=== PATIENT | female | born 1965 | race Two or more races ===

== ENCOUNTER 2016-09-15 12:44 | Emergency (ER) | payer OTHER ==
[2016-09-15 13:20] VITALS: TEMP 98.1; BMI 18.9
--- NOTE | 2016-09-15 14:17 | PDOC ---
[id number] is a 51 year old female who presents to the ED complaining of bilateral lower back pain. The patient and her family member are poor historians. The family member states she has a hx of UTI and kidney stones but cannot provide any specific details secondary to language barrier. The patient denies fever, chills Allergies:NKDA Social: Denies toxic habits <Kirsty Daley - Last Filed: 09/15/16 15:16> <Santiago Arzate - Last Filed: 09/17/16 12:21> - General Chief Complaint: Pain, Acute Stated Complaint: FLANK PAIN, Past History <Kirsty Daley - Last Filed: 09/15/16 15:16> - Past Medical History Other medical history: DENIES. - Psycho/Social/Smoking Cessation Hx Anxiety: No Suicidal Ideation: No Smoking History: Never smoked Substance Use Type: None <Santiago Arzate - Last Filed: 09/17/16 12:21> - Past Medical History Allergies/Adverse Reactions: Allergies Allergy/AdvReac Type Severity Reaction Status Date / Time No Known Allergies Allergy Verified 09/15/16 13:15 Home Medications: Ambulatory Orders NK [No Known Home Medication] 09/15/16 Review of Systems - Review of Systems Comments:: 09/15/16 14:23 CONSTITUTIONAL: Absent: fever, chills MUSCULOSKELETAL: +Bilateral lower back pain. Absent: joint swelling <Kirsty Daley - Last Filed: 09/15/16 15:16> *Physical Exam - Vital Signs Last Vital Signs Temp Pulse Resp BP Pulse Ox 98.1 F 102 H 19 105/58 99 09/15/16 13:15 09/15/16 13:15 09/15/16 13:15 09/15/16 13:15 09/15/16 13:15 - Physical Exam Comments: 09/15/16 14:24 GENERAL: Well developed, well nourished. Awake and alert. In no acute distress. HEENT: Normocephalic, atraumatic. PERRLA, EOMI. No conjunctival pallor. Sclera are non- icteric. Moist mucous membranes. Oropharynx is clear. NECK: Supple. Full ROM. No JVD. Carotid pulses 2+ and symmetric, without bruits. No thyromegaly. No lymphadenopathy. CARDIOVASCULAR: Regular rate and rhythm. No murmurs, rubs, or gallops. Distal pulses are 2+ and symmetric. PULMONARY: No evidence of respiratory distress. Lungs clear to auscultation bilaterally. No wheezing, rales or rhonchi. ABDOMINAL: +Mild suprapubic tenderness. Soft. Non-distended. No rebound or guarding. No organomegaly. Normoactive bowel sounds. MUSCULOSKELETAL +Left CVA tenderness. Normal range of motion at all joints. No bony deformities or tenderness. EXTREMITIES: No cyanosis. No clubbing. No edema. No calf tenderness. SKIN: Warm and dry. Normal capillary refill. No rashes. No jaundice. NEUROLOGICAL: Alert, awake, appropriate. Cranial nerves 2-12 intact. No motor deficits in the in face, upper extremities and lower extremities. PSYCHIATRIC: Cooperative. Good eye contact. Appropriate mood and affect. <Kirsty Daley - Last Filed: 09/15/16 15:16> - Vital Signs Last Vital Signs Temp Pulse Resp BP Pulse Ox 98.1 F 102 H 19 105/58 99 09/15/16 13:15 09/15/16 13:15 09/15/16 13:15 09/15/16 13:15 09/15/16 13:15 <Santiago Arzate - Last Filed: 09/17/16 12:21> ED Treatment Course - LABORATORY CBC & Chemistry Diagram: 09/15/16 14:34 09/15/16 14:34 <Kirsty Daley - Last Filed: 09/15/16 15:16> - LABORATORY CBC & Chemistry Diagram: 09/15/16 14:34 09/15/16 14:34 <Santiago Arzate - Last Filed: 09/17/16 12:21> *DC/Admit/Observation/Transfer - Attestations Scribe Attestion: 09/15/16 14:23 Documentation prepared by Kirsty Daley, acting as medical doctor md/medical director for Santiago Arzate MD, /DO. <Kirsty Daley - Last Filed: 09/15/16 15:16> - Discharge Dispostion Admit: No <Santiago Arzate - Last Filed: 09/17/16 12:21> Diagnosis at time of Disposition: Cyst of ovary, right Abdominal pain Qualifiers: Abdominal location: unspecified location Qualified Code(s): R10.9 - Unspecified abdominal pain - Discharge Dispostion Disposition: HOME Condition at time of disposition: Stable - Referrals Referrals: pmd, as needed [Other] STAFF,NOT ON [Primary Care Provider] - - Patient Instructions Printed Discharge Instructions: DI for Ovarian Cyst, DI for Abdominal Pain- Adult Print Language: [place]
[2016-09-15] MEDS ORDERED: KETOROLAC TROMETHAMINE 30 MG/1 ML VIAL IVPUSH ONE (14:18)
[2016-09-15] MEDS ORDERED: KETOROLAC TROMETHAMINE 30 MG/1 ML VIAL ONE (14:24)
[2016-09-15 14:47] LABS: BASOPHIL 0.8 % (0-2.0); EOSINOPHIL 2.2 % (0-4.5); MCH 31.2 pg (25.7-33.7); MCHC 33.3 g/dl (32.0-36.0); MEAN CELL VOLUME 93.6 fl (80-96); MEAN PLT VOLUME 9.7 fl (7.5-11.1); NEUTROPHILS 39.3 % (42.8-82.8); PLATELET COUNT 231 K/MM3 (134-434); RDW 12.3 % (11.6-15.6); WHITE BLOOD COUNT 4.2 K/mm3 (4.0-10.0)
[2016-09-15 14:49] LABS: URINE APPEARANCE CLEAR; URINE BILIRUBIN NEGATIVE (NEGATIVE); URINE BLOOD NEGATIVE (NEGATIVE); URINE COLOR YELLOW; URINE GLUCOSE (UA) NEGATIVE (NEGATIVE); URINE KETONE NEGATIVE (NEGATIVE); URINE LEUK ESTERASE NEGATIVE (NEGATIVE); URINE NITRITE NEGATIVE (NEGATIVE); URINE PROTEIN NEGATIVE (NEGATIVE); URINE UROBILINOGEN NEGATIVE E.U./dl (0.2-1.0)
[2016-09-15 15:11] LABS: ALBUMIN 3.7 g/dl (3.4-5.0); ANION GAP 8 (8-16); CALCIUM 9.2 mg/dL (8.5-10.1); CO2 28 mmol/L (21-32); CREATININE 0.5 mg/dL (0.55-1.02); GLUCOSE,RANDOM 96 mg/dL (74-106); SGOT/AST 12 U/L (15-37); SGPT/ALT 19 U/L (12-78)
[2016-09-15 15:13] LABS: ALK PHOS 61 U/L (45-117); BILIRUBIN,TOTAL 0.3 mg/dL (0.2-1.0); TOT PROT 7.5 g/dl (6.4-8.2)
[2016-09-15 18:32] VITALS: BP 110/56; PULSE 91
--- NOTE | 2016-09-15 21:58 | PDOC ---
*Physical Exam - Vital Signs Last Vital Signs Temp Pulse Resp BP Pulse Ox 98.1 F 91 H 18 110/56 99 09/15/16 13:15 09/15/16 18:31 09/15/16 18:31 09/15/16 18:31 09/15/16 18:31 - Physical Exam Comments: 09/15/16 21:56 patient is a 51-year-old female endorsed to me by Dr. Arzate. Patient presented with nonspecific abdominal pain. CBC/CMP/UA within normal limit. CT of abdomen and pelvis reveals a right involuting ovarian cyst but no evidence of acute intra-abdominal pathology. At this time, patient is well-appearing, with minimal discomfort, tolerates by mouth. Will discharge with outpatient follow-up as scheduled. ED Treatment Course - LABORATORY CBC & Chemistry Diagram: 09/15/16 14:34 09/15/16 14:34 - ADDITIONAL ORDERS Additional order review: Laboratory Results 09/15/16 09/15/16 14:34 14:34 Sodium 140 Potassium 4.0 Chloride 104 Carbon Dioxide 28 Anion Gap 8 BUN 11 Creatinine 0.5 L Creat Clearance w eGFR > 60 Random Glucose 96 Calcium 9.2 Total Bilirubin 0.3 AST 12 L ALT 19 Alkaline Phosphatase 61 Total Protein 7.5 Albumin 3.7 Serum , Qual Negative Urine Color Yellow Urine Appearance Clear Urine pH 6.0 Ur Specific [place] 1.025 Urine Protein Negative Urine Glucose (UA) Negative Urine Ketones Negative Urine Blood Negative Urine Nitrite Negative Urine Bilirubin Negative Urine Urobilinogen Negative Ur Leukocyte Esterase Negative 09/15/16 14:34 RBC 3.90 MCV 93.6 MCHC 33.3 RDW 12.3 MPV 9.7 Neutrophils % 39.3 L Lymphocytes % 49.7 H Monocytes % 8.0 Eosinophils % 2.2 Basophils % 0.8 - Medications Given in the ED: ED Medications Discontinued Medications Generic Name Dose Route Start Last Admin Trade Name Freq PRN Reason Stop Dose Admin Ketorolac Tromethamine 30 mg 09/15/16 14:18 09/15/16 14:34 Toradol Injection - IVPUSH 09/15/16 14:19 30 mg ONCE ONE Administration *DC/Admit/Observation/Transfer Diagnosis at time of Disposition: Cyst of right ovary Abdominal pain Qualifiers: Abdominal location: unspecified location Qualified Code(s): R10.9 - Unspecified abdominal pain - Discharge Dispostion Disposition: HOME Condition at time of disposition: Stable - Referrals Referrals: STAFF,NOT ON [Primary Care Provider] - pmd, as needed [Other] - Patient Instructions Printed Discharge Instructions: DI for Abdominal Pain-Adult, DI for Ovarian Cyst Print Language: AZERI - Post Discharge Activity
== END 2016-09-15 22:22 | disposition home or self-care (01) ==
LOC: JER 12:44
PROC: 3E0333Z Introduction of Anti-inflammatory into Peripheral Vein, Percutaneous Approach (ICD-10-PCS; principal; 2016-09-15)
DX: N83.291 Other ovarian cyst, right side (principal)
CPT/HCPCS: 36415; 74177-TC; 80053; 81003; 84703; 85025; 87086; 99284-25

== ENCOUNTER 2019-01-31 12:36 | Emergency (ER) | payer OTHER | END 2019-01-31 19:31 | disposition home or self-care (01) | LOC: JER 12:36 ==